=== PATIENT | female | born 1995 | race Caucasian/White ===

== ENCOUNTER 2020-07-20 22:54 | Emergency (ER) | payer BC ==
[2020-07-20 23:04] VITALS: BP 121/76
--- NOTE | 2020-07-21 00:04 | ER Document Report ---
ED Extremity Problem, Lower - General Chief Complaint: Toe Injury Stated Complaint: INJURY TO PINKY TOE POSS BROKEN BONE Time Seen by Provider: 07/20/20 23:31 Notes: CHIEF COMPLAINT: Right fifth toe injury HPI: 25-year-old female presenting for evaluation of right fifth toe injury. She is concerned about a dislocation as she has done this before. She kicked a ladder tonight. ROS: See HPI - all other systems were reviewed and are otherwise negative Constitutional: no fever Eyes: no drainage, no blurred vision ntegumentary: no rash Allergy: no hives Musculoskeletal: + extremity pain or swelling Neurological: no numbness/tingling, no weakness MEDICATIONS: I agree with the patient medications as charted by the RN. ALLERGIES: I agree with the allergies as charted by the RN. PAST MEDICAL HISTORY/PAST SURGICAL HISTORY: Reviewed and agree as charted by RN. SOCIAL HISTORY: Reviewed and agree as charted by RN. FAMILY HISTORY: No significant familial comorbid conditions directly related to patient complaint EXAM: Reviewed vital signs as charted by RN. CONSTITUTIONAL: Alert and oriented and responds appropriately to questions. Well-appearing; well-nourished HEAD: Normocephalic; atraumatic EYES: Conjunctivae clear, sclerae non-icteric ENT: normal nose; no rhinorrhea; moist mucous membranes; NECK: Supple without meningismus CARD: symmetric distal pulses RESP: Normal chest excursion without splinting or tachypnea; ABD/GI: non-distended BACK: The back appears normal EXT: Normal ROM in all joints; there is tenderness on palpation of the right fifth toe without definitive deformity palpable; no cyanosis, no effusions, no edema SKIN: Normal color for age and race; warm; dry; good turgor; no acute lesions noted NEURO: Moves all extremities equally; Motor and sensory function intact PSYCH: The patient's mood and manner are appropriate. Grooming and personal hygiene are appropriate. MDM: 25-year-old female with injury to the right fifth toe. Awaiting imaging study to definitively treat TRAVEL OUTSIDE OF THE [place] IN LAST 30 DAYS: No - Related Data Allergies/Adverse Reactions: No Known Allergies Allergy (Verified 08/24/15 18:50) Home Medications: BCP Past Medical History - Social History Smoking Status: Never Smoker Family History: Reviewed & Not Pertinent Pulmonary Medical History: Reports: Hx Asthma Skin Medical History: Reports Hx Cellulitis - Immunizations Immunizations up to date: Yes Hx Diphtheria, Pertussis, Tetanus Vaccination: Yes Physical Exam - Vital signs Vitals: Temp Pulse Resp BP Pulse Ox 98.3 F 69 16 121/76 98 07/20/20 23:02 07/20/20 23:02 07/20/20 23:02 07/20/20 23:02 07/20/20 23:02 Course - Re-evaluation Re-evalutation: 07/21/20 00:11 X-ray imaging does not reveal fracture or dislocation. Will delvis tape and disc harge home 07/21/20 00:12 - Vital Signs Vital signs: Temp Pulse Resp BP Pulse Ox 98.3 F 69 16 121/76 98 07/20/20 23:02 07/20/20 23:02 07/20/20 23:02 07/20/20 23:02 07/20/20 23:02 - Laboratory Results Critical Laboratory Results Reviewed: No Critical Results - Radiology Results Critical Radiology Results Reviewed: No Critical Results Discharge - Discharge Clinical Impression: Contusion of toe, right Qualifiers: Encounter type: initial encounter Toe: lesser toe Damage to nail status: without damage Qualified Code(s): S90.121A - Contusion of right lesser toe(s) without damage to nail, initial encounter Condition: Stable Disposition: HOME, SELF-CARE Additional Instructions: Motrin or Tylenol for pain. Ice to the toes to help with swelling and bruising. X-ray imaging did not reveal evidence of a fracture or dislocation tonight. Follow-up with primary care for reevaluation
--- NOTE | 2020-07-21 00:08 | RADIOLOGY REPORT (SQ) ---
EXAM DESCRIPTION: TOE RIGHT [facility]: XR TOES 2 OR MORE VIEWS CLINICAL HISTORY: 25 years Female; bone pain; COMPARISON: None FINDINGS: 3 views with attention to the right 4th and 5th toes. Alignment is anatomic. No acute fracture or dislocation. No hyperdense foreign bodies. No soft tissue air. No lytic changes or periosteal reaction. IMPRESSION: 1. No acute findings.
== END 2020-07-21 00:31 | disposition home or self-care (01) ==
LOC: ER 22:54
DX: S90.121A Contusion of right lesser toe(s) without damage to nail, initial encounter (principal); M79.674 Pain in right toe(s); M79.89 Other specified soft tissue disorders; W22.8XXA Striking against or struck by other objects, initial encounter; J45.909 Unspecified asthma, uncomplicated
CPT/HCPCS: 99283